=== PATIENT | female | born 1985 | race Caucasian/White ===

== ENCOUNTER 2024-12-05 16:15 | Emergency (ER) | payer OTHER ==
[~2024-12-05] VITALS: Ht 157.4 cm; Wt 67.8 kg
[2024-12-05] MEDS ORDERED: Labetalol Hydrochloride 20 MG/4 ML SYR IV ONE (16:45)
[2024-12-05 17:01] LABS: BASO % 0.3 % (0.0-1.0); EOS # 0.1 10*3/uL (0.0-0.4); EOS % 0.7 % (1.0-4.0); HEMATOCRIT 46.5 % (37.0-47.0); MEAN CELL VOLUME 92.3 fl (81.0-99.0); MEAN CORPUSCULAR HGB 30.2 pg (27.0-31.0); MEAN CORPUSCULAR HGB CONC 32.7 g/dl (33.0-37.0); MEAN PLATELET VOLUME 9.4 fl (9.6-12.3); MONO # 0.4 10*3/uL (0.1-1.0); MONO % 4.5 % (3.0-9.0); NEUT # 6.4 10*3/uL (2.3-7.9); NEUT % 74.8 % (47.0-73.0); PLATELET COUNT AUTOMATED 307 10*3/uL (130-400); RED BLOOD COUNT 5.04 10*6/uL (4.10-5.10); WHITE BLOOD COUNT 8.6 10*3/uL (4.8-10.8)
[2024-12-05 17:21] LABS: ALKALINE PHOSPHATASE 59 U/L (46-116); BUN 10 mg/dl (9-23); CHLORIDE 104 mmol/L (98-107); POTASSIUM 3.7 mmol/L (3.4-5.1); SGPT/ALT 8 U/L (5-49); TOTAL PROTEIN 7.5 gm/dL (6.0-8.0)
[2024-12-05] MEDS ORDERED: ALDACTONE25 MG PO (17:39)
[2024-12-05] MEDS ORDERED: LOSARTAN POTASS50 M1 PO (17:40)
[2024-12-05] MEDS ORDERED: TIZANIDINE HCL4 MG PO (17:40)
[2024-12-05] MEDS ORDERED: BUPROPION HYDR150 M3 PO (17:40)
[2024-12-05] MEDS ORDERED: MIRTAZAPINE30 M2 PO (17:41)
[2024-12-05] MEDS ORDERED: ZONISAMIDE100 MG PO (17:42)
[2024-12-05] MEDS ORDERED: APRESOLINE25 MG PO (17:42)
[2024-12-05] MEDS ORDERED: NURTEC ODT75 MG PO (17:43)
[2024-12-05] MEDS ORDERED: LORAZEPAM1 MG PO (17:44)
[2024-12-05] MEDS ORDERED: Ketorolac Tromethamine 30 MG/ML VIAL IV ONE (17:45)
[2024-12-05] MEDS ORDERED: EMGALITY120 MG/1 M SQ (17:45)
[2024-12-05] MEDS ORDERED: ACETAMINOPHEN 325 MG TAB PO ONE (17:45)
[2024-12-05] MEDS ORDERED: BOTOX200 UNIT IJ (17:46)
[2024-12-05] MEDS ORDERED: TEMAZEPAM15 M1 PO (17:47)
[2024-12-05] MEDS ORDERED: SODIUM CHLORIDE 0.9% 100 ML BAG IV ONE (18:15)
[2024-12-05] MEDS ORDERED: IOHEXOL 350 MG/ML 100 ML VIAL IV ONE (18:15)
[2024-12-05] MEDS ORDERED: Dexamethasone Sodium Phospha 10 MG/1 ML VIAL IV ONE (20:15)
== END 2024-12-05 21:34 | disposition home or self-care (01) ==
LOC: ED 16:15
PROVIDERS: Nurse Practitioner Family
DX: R07.89 Other chest pain (principal); I10 Essential (primary) hypertension; G43.909 Migraine, unspecified, not intractable, without status migrainosus; Z79.899 Other long term (current) drug therapy; Z86.73 Personal history of transient ischemic attack (TIA), and cerebral infarction without residual deficits; Z88.5 Allergy status to narcotic agent; Z88.8 Allergy status to other drugs, medicaments and biological substances